=== PATIENT | male | born 1980 | race Hispanic/Latino ===

== ENCOUNTER 2022-12-23 20:27 | Emergency (ER) | payer SELFPAY ==
[2022-12-23 20:28] VITALS: BP 148/90; PULSE 93; RESP 18; TEMP 36.4; O2SAT 99; BMI 33.9
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
[2022-12-23] MEDS: traMADol 50 MG Tablet PO (23:15)
[2022-12-23] MEDS: Acetaminophen 500 MG Tablet 1000 MG PO (23:15)
[2022-12-23] MEDS: Ondansetron ODT 4 MG Tablet 8 MG PO (23:15)
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
[2022-12-24 00:27] VITALS: PULSE 82; RESP 19; O2SAT 97
[2022-12-24 04:06] VITALS: BP 147/84; PULSE 83; RESP 16; TEMP 36.3; O2SAT 98
== END 2022-12-24 04:07 | disposition short-term general hospital (02) ==
PROVIDERS: Emergency Provider Emergency Medicine; Visit Provider Emergency Medicine
DX: H05.821 Myopathy of extraocular muscles, right orbit (principal); S02.31XA Fracture of orbital floor, right side, initial encounter for closed fracture; S02.831A Fracture of medial orbital wall, right side, initial encounter for closed fracture; S02.2XXA Fracture of nasal bones, initial encounter for closed fracture; R11.0 Nausea; Y04.8XXA Assault by other bodily force, initial encounter; Y92.322 Soccer field as the place of occurrence of the external cause; Z79.899 Other long term (current) drug therapy
CPT/HCPCS: 70450; 70486; 99285